=== PATIENT | male | born 1945 | race American Indian/Alaskan Native ===

== ENCOUNTER 2020-10-21 09:26 | Observation (INO) | payer MEDICARE ==
[2020-10-21] MEDS ORDERED: LACTATED RINGERS 2,000 ML IV ONE (10:09)
--- NOTE | 2020-10-21 10:10 | Emergency Department Report ---
ED General Adult HPI - General Chief complaint: GI Bleed Stated complaint: WEAKNESS/GI BLEED PUI?: No Time Seen by Provider: 10/21/20 09:45 Source: patient, EMS (Verbal report received from emergency medical services. EMS documentation not available at time of chart dictation ), RN notes reviewed Mode of arrival: Stretcher Limitations: Physical Limitation - History of Present Illness Initial comments: The patient was evaluated in the emergency department for symptoms described in the history of present illness. He/she was evaluated in the context of the global COVID-19 pandemic, which necessitated consideration that the patient might be at risk for infection with the virus that causes COVID-19. Institutional protocols and algorithms that pertain to the evaluation of patients at risk for COVID-19 are in a state of rapid change based on information released by regulatory bodies including the CDC and federal and stat e organizations. These policies and algorithms were followed during the patient's care in the emergency department. Please note that these policies, procedures and recommendations changed on a rapid basis. During the history and physical examination, I am chaperoned by experimental display builder Townsend. Patient is a 75-year-old gentleman who is not known to myself previously. He is up-to-date with COVID-19 vaccination, has a history of partial pancreatic resection, Whipple procedure, is currently on Creon, and reports he does not take any systemic anticoagulation. He is not quite sure why he had his Whipple procedure. His medical care is typically at [facility]. He requested to go to [facility] with EMS, but because he was hypotensive and tachycardic in the field, he was diverted to this emergency room. The patient presents to the ER today with a complaint of painless lower GI bleed. He states that 4 to 5 days ago, he had an episode of dark/bright red blood per rectum x1. This has since resolved. Over the past 4 days, he has not defecated otherwise. However, this morning, he began to have dark red blood per rectum. He denies headache, new neck pain, chest pain, abdominal pain, shortness of breath. He feels dizzy and lightheaded. He denies abdominal pain. He denies fevers and chills. He feels nauseous. He denies urinary symptoms. He denies focal extremity weakness and numbness. He denies Covid symptomatology. He is amenable to packed red blood cell transfusion if necessary. He specifically denies consumption of aspirin, Plavix, Coumadin, and novel anticoagulant agents. -: Gradual, days(s) Consistency: intermittent Improves with: none Worsens with: none - Related Data Allergies Allergy/AdvReac Type Severity Reaction Status Date / Time No Known Allergies Allergy Unverified 10/21/20 10:12 ED Review of Systems ROS: Stated complaint: WEAKNESS/GI BLEED Other details as noted in HPI Constitutional: malaise, weakness Eyes: denies: eye discharge ENT: denies: epistaxis Respiratory: denies: cough Cardiovascular: syncope (Near syncope). denies: chest pain Gastrointestinal: nausea, vomiting, hematochezia. denies: abdominal pain, hematemesis, melena Neurological: weakness ED Physical Exam - General Limitations: Physical Limitation General appearance: alert, in no apparent distress - Head Head exam: Present: atraumatic, normocephalic - Eye Eye exam: Present: normal appearance, EOMI. Absent: nystagmus - ENT ENT exam: Present: normal exam, normal orophraynx, mucous membranes moist, normal external ear exam - Neck Neck exam: Present: normal inspection, full ROM. Absent: tenderness, meningismus - Respiratory Respiratory exam: Present: normal lung sounds bilaterally. Absent: respiratory distress, wheezes, rales, rhonchi, stridor, decreased breath sounds - Cardiovascular Cardiovascular Exam: Present: normal rhythm, tachycardia, normal heart sounds. Absent: bradycardia, irregular rhythm, systolic murmur, diastolic murmur, rubs, gallop - GI/Abdominal GI/Abdominal exam: Present: soft, other (Evidence of Whipple procedure noted. Scaphoid abdomen noted.). Absent: distended, guarding, rebound, rigid, pulsatile mass - Rectal Rectal exam: Present: normal inspection, normal rectal tone, heme (+) stool, bloody stool - Extremities Exam Extremities exam: Present: normal inspection, full ROM, other (2+ pulses noted in the bilateral upper and lower extremities. There is no palpable cord. negative Homans sign. Muscular compartments are soft. The pelvis is stable.). Absent: pedal edema, calf tenderness - Back Exam Back exam: Present: normal inspection. Absent: tenderness, CVA tenderness (R), CVA tenderness (L), paraspinal tenderness, vertebral tenderness - Neurological Exam Neurological exam: Present: alert, oriented X3, other (No facial droop. Tongue midline. Extraocular movements intact bilaterally. Facial sensation intact to light touch in V1, V2, V3 distribution bilaterally. 5 and a 5 strength in 4 extremities. Sensation intact to light touch in 4 extremities.). Absent: motor sensory deficit - Psychiatric Psychiatric exam: Present: flat affect - Skin Skin exam: Present: warm, dry, intact, normal color. Absent: rash ED Course Vital Signs 10/21/20 10:41 Pulse Rate 113 H Respiratory 18 Rate Blood Pressure 114/65 [Right] O2 Sat by Pulse 100 Oximetry - Reevaluation(s) Reevaluation #1: 10/21/20 10:29 Differential diagnosis, including but not limited to: Lower GI bleed, angiodysplasia, diverticulosis, malignancy Assessment and plan: 75-year-old gentleman, who is awake, alert, oriented, sober with a GCS of 15, heart rate 120 to 130 bpm, blood pressure 80 to 94 mmHg systolic, with dark red blood per rectum, without physical pain. He reports having had a colonoscopy 2 years ago. He does not remember results of the colonoscopy. He is amenable to IV placement, IV fluids, diagnostic laboratory testing, and admission to the medical service for supportive care. I have discussed this plan of care with the patient, who articulated siena g. Initially reached out to GI physician on-call, Dr. Nga Rosenthal He will follow in consultation. 10/21/20 12:34 Patient was seen and examined with the aforementioned assembler dry cell and battery. He was able to look up patient's medical records at [facility], the patient has a history of alcoholism, and still consumes alcohol. He will follow in consultation. Hospital physician, Dr. James, to admit patient to the medical service. Blood pressure 110 systolic. Heart rate 105 bpm. No active vomiting. Patient does not appear to be in any acute distress. 10/21/20 12:35 Care team unable to obtain temperature orally, or from an axillary standpoint. Still has dark red blood per rectum. I suspect that this is environmental hypothermia. We will start patient on active patient warming. We will repeat oral temperature, axillary temperature, and if not able to obtain, have ordered rectal temperature. ED Medical Decision Making - Lab Data Result diagrams: 10/21/20 11:22 10/21/20 11:22 Vital Signs 10/21/20 10:41 Pulse Rate 113 H Respiratory 18 Rate Blood Pressure 114/65 [Right] O2 Sat by Pulse 100 Oximetry Lab Results 10/21/20 10/21/20 10/21/20 Range/Units 09:47 11:22 11:22 WBC 9.5 (4.5-11.0) K/mm3 RBC 3.28 L (3.65-5.03) M/mm3 Hgb 10.5 L (11.8-15.2) gm/dl Hct 32.0 L (35.5-45.6) % MCV 98 H (84-94) fl MCH 32 (28-32) pg MCHC 33 (32-34) % RDW 17.8 H (13.2-15.2) % Plt Count 331 (140-440) K/mm3 Lymph % (Auto) 15.4 (13.4-35.0) % [place] % (Auto) 5.7 (0.0-7.3) % Eos % (Auto) 0.5 (0.0-4.3) % Baso % (Auto) 0.4 (0.0-1.8) % Lymph # (Auto) 1.5 (1.2-5.4) K/mm3 [place] # (Auto) 0.5 (0.0-0.8) K/mm3 Eos # (Auto) 0.0 (0.0-0.4) K/mm3 Baso # (Auto) 0.0 (0.0-0.1) K/mm3 Seg Neutrophils % 78.0 H (40.0-70.0) % Seg Neutrophils # 7.4 (1.8-7.7) K/mm3 PT 13.5 (12.2-14.9) Sec. INR 0.98 (0.87-1.13) APTT 26.4 (24.2-36.6) Sec. Sodium (137-145) mmol/L Potassium (3.6-5.0) mmol/L Chloride (98-107) mmol/L Carbon Dioxide (22-30) mmol/L Anion Gap mmol/L BUN (9-20) mg/dL Creatinine (0.8-1.3) mg/dL Estimated GFR ml/min BUN/Creatinine Ratio % Glucose (75-100) mg/dL POC Glucose 110 H (70-105) mg/dL Calcium (8.4-10.2) mg/dL Magnesium (1.7-2.3) mg/dL Total Bilirubin (0.1-1.2) mg/dL AST (5-40) units/L ALT (7-56) units/L Alkaline Phosphatase (35-129) units/L Total Protein (6.3-8.2) g/dL Albumin (3.9-5) g/dL Albumin/Globulin Ratio % 10/21/20 Range/Units 11:22 WBC (4.5-11.0) K/mm3 RBC (3.65-5.03) M/mm3 Hgb (11.8-15.2) gm/dl Hct (35.5-45.6) % MCV (84-94) fl MCH (28-32) pg MCHC (32-34) % RDW (13.2-15.2) % Plt Count (140-440) K/mm3 Lymph % (Auto) (13.4-35.0) % [place] % (Auto) (0.0-7.3) % Eos % (Auto) (0.0-4.3) % Baso % (Auto) (0.0-1.8) % Lymph # (Auto) (1.2-5.4) K/mm3 [place] # (Auto) (0.0-0.8) K/mm3 Eos # (Auto) (0.0-0.4) K/mm3 Baso # (Auto) (0.0-0.1) K/mm3 Seg Neutrophils % (40.0-70.0) % Seg Neutrophils # (1.8-7.7) K/mm3 PT (12.2-14.9) Sec. INR (0.87-1.13) APTT (24.2-36.6) Sec. Sodium 142 (137-145) mmol/L Potassium 5.4 H (3.6-5.0) mmol/L Chloride 109.4 H (98-107) mmol/L Carbon Dioxide 21 L (22-30) mmol/L Anion Gap 17 mmol/L BUN 24 H (9-20) mg/dL Creatinine 0.9 (0.8-1.3) mg/dL Estimated GFR > 60 ml/min BUN/Creatinine Ratio 27 % Glucose 115 H (75-100) mg/dL POC Glucose (70-105) mg/dL Calcium 8.7 (8.4-10.2) mg/dL Magnesium 1.70 (1.7-2.3) mg/dL Total Bilirubin 0.40 (0.1-1.2) mg/dL AST 30 (5-40) units/L ALT 19 (7-56) units/L Alkaline Phosphatase 177 H (35-129) units/L Total Protein 6.6 (6.3-8.2) g/dL Albumin 3.1 L (3.9-5) g/dL Albumin/Globulin Ratio 0.9 % - EKG Data -: EKG Interpreted by Me EKG shows normal: sinus rhythm Rate: tachycardia - EKG Data When compared to previous EKG there are: previous EKG unavailable 10/21/20 10:30 EKG is interpreted at 10: 20 4 AM Sinus rhythm, tachycardia, rate 107 bpm. Left axis deviation. Left anterior fascicular block. Motion artifact. QTC 478 ms. Abnormal EKG. Not a STEMI. Critical care attestation.: If time is entered above; I have spent that time in minutes in the direct care of this critically ill patient, excluding procedure time. ED Disposition Clinical Impression: GI bleed, History of Whipple procedure Disposition: ADMITTED INPATIENT Is pt being admited?: Yes Does the pt Need Aspirin: No Condition: Serious Referrals: PRIMARY CARE, [Referring] - 3-5 Days Forms: Accompanied Note
[2020-10-21] MEDS ORDERED: ONDANSETRON 4 MG/2 ML INJ IV ONE (11:08)
[2020-10-21 11:48] LABS: Basophils % (Auto) 0.4 % (0.0-1.8); Eosinophils % (Auto) 0.5 % (0.0-4.3); Hemoglobin 10.5 gm/dl (11.8-15.2); Lymphocytes # (Auto) 1.5 K/mm3 (1.2-5.4); Lymphocytes % (Auto) 15.4 % (13.4-35.0); Mean Corpuscular HGB Conc 33 % (32-34); Mean Corpuscular Volume 98 fl (84-94); Monocytes # (Auto) 0.5 K/mm3 (0.0-0.8); Monocytes % (Auto) 5.7 % (0.0-7.3); Platelet Count 331 K/mm3 (140-440); Red Blood Count 3.28 M/mm3 (3.65-5.03); Red Cell Distribution Width 17.8 % (13.2-15.2)
[2020-10-21 12:07] LABS: INR 0.98 (0.87-1.13)
[2020-10-21 12:08] LABS: Partial Thromboplastin Time 26.4 Sec. (24.2-36.6)
[2020-10-21 12:16] LABS: Alanine Aminotransferase 19 units/L (7-56); Albumin 3.1 g/dL (3.9-5); BUN/Creatinine Ratio 27; Blood Urea Nitrogen 24 mg/dL (9-20); Calcium 8.7 mg/dL (8.4-10.2); Hemolysis Index 37
--- NOTE | 2020-10-21 12:52 | History and Physical Report ---
History of Present Illness Chief complaint: I have had blood when I go to the toilet History of present illness: 75 YO Male with PUD, ETOH Pancreatitis S/P Whipple Procedure who is currently vaccinated against Coronavirus presents to ED for evaluation. Patient reports "I have had blood in my stool". Patient reports that he has experienced 3 episodes of blood in his stool over the past 4 days. Patient states that the initial event was 4 days ago without any subsequent bleeding. Patient states that he awoke from sleep this morning and had 2 episodes of dark red blood per rectum. EMS was notified and upon arrival the patient was found to be in distress and subsequent transported to [facility] for further care and evaluation of the aforementioned symptoms. The patient was seen and evaluated in the emergency department. All lab and imaging studies reviewed. Patient was found to be Hemoccult positive with clinical symptoms consistent with GI bleed. Patient mated to medical floor and initiated on GI bleed protocol. GI team consulted in ED. Patient denies fever, chills, chest pain, palpitation, productive cough, skin rash, recent ill contact, or known exposure to COVID-19. Patient denies excessive NSAID use, aspirin use, or herbal supplementation. No prior admission for review. No medication listed at time of admission for reconciliation. Advanced care planning conducted in ED. Past History Past Medical History: other (See HPI) Past Surgical History: Other (Whipple procedure) Social history: single, alcohol abuse Family history: hypertension Medications and Allergies Allergies Allergy/AdvReac Type Severity Reaction Status Date / Time No Known Allergies Allergy Unverified 10/21/20 10:12 Review of Systems Constitutional: no weight loss, no fever, no chills Ears, nose, mouth and throat: no ear pain, no tinnitis, no nose pain, no nasal congestion, no nasal discharge Cardiovascular: no chest pain, no orthopnea, no palpitations, no rapid/irregular heart beat, no syncope Respiratory: no cough, no excessive sputum Gastrointestinal: BRBPR, no abdominal pain, no vomiting, no diarrhea, no change in bowel habits, no hematochezia, no early satiety, no heartburn Genitourinary Male: no hematuria, no flank pain, no discharge, no urinary frequency, no urinary hesitancy Rectal: no pain, no incontinence, no bleeding Musculoskeletal: no neck pain, no shooting arm pain, no low back pain Integumentary: no deferred, no rash, no sores, no wounds, no jaundice Neurological: no head injury, no numbness, no seizures, no syncope Psychiatric: no anxiety, no memory loss, no sleep disturbances, no insomnia, no change in appetite, no change in libido Endocrine: no cold intolerance, no polyphagia, no polydipsia, no nocturia, no flushing Hematologic/Lymphatic: no easy bruising, no easy bleeding Allergic/Immunologic: no urticaria, no wheezing Exam - Constitutional Vitals: Temp Pulse Resp BP Pulse Ox 113 H 18 114/65 100 10/21/20 10:41 10/21/20 10:41 10/21/20 10:41 10/21/20 10:41 General appearance: Present: mild distress, cachectic - EENT Eyes: Present: PERRL (Conjunctival pallor) ENT: hearing intact, clear oral mucosa - Neck Neck: Present: supple, normal ROM - Respiratory Respiratory effort: normal Respiratory: bilateral: CTA - Cardiovascular Heart Sounds: Present: S1 & S2. Absent: rub, click - Extremities Extremities: pulses symmetrical, No edema Peripheral Pulses: within normal limits - Abdominal General gastrointestinal: Present: soft, non-tender, non-distended, normal bowel sounds Male genitourinary: Present: normal - Integumentary Integumentary: Present: clear, warm, dry - Musculoskeletal Musculoskeletal: gait normal, strength equal bilaterally - Psychiatric Psychiatric: appropriate mood/affect, intact judgment & insight - Neurologic Neurologic: CNII-XII intact, moves all extremities Results - Labs CBC & Chem 7: 10/21/20 11:22 10/21/20 11:22 Labs: Abnormal lab results 10/21/20 10/21/20 10/21/20 Range/Units 09:47 11:22 11:22 RBC 3.28 L (3.65-5.03) M/mm3 Hgb 10.5 L (11.8-15.2) gm/dl Hct 32.0 L (35.5-45.6) % MCV 98 H (84-94) fl RDW 17.8 H (13.2-15.2) % Seg Neutrophils % 78.0 H (40.0-70.0) % Potassium 5.4 H (3.6-5.0) mmol/L Chloride 109.4 H (98-107) mmol/L Carbon Dioxide 21 L (22-30) mmol/L BUN 24 H (9-20) mg/dL Glucose 115 H (75-100) mg/dL POC Glucose 110 H (70-105) mg/dL Alkaline Phosphatase 177 H (35-129) units/L Albumin 3.1 L (3.9-5) g/dL Assessment and Plan - Patient Problems (1) GI bleed Current Visit: Yes Status: Acute Plan to address problem: GI bleed protocol: CBC, CMP, PPI therapy, n.p.o. after midnight, GI team consulted. Endoscopy in a.m. as per GI team. (2) Alcohol dependence Current Visit: Yes Status: Acute Plan to address problem: Thiamine, multivitamin, folic acid, banana bag, supportive care, patient denies exhibit signs or symptoms of alcohol withdrawal at this time. (3) Peptic ulcer disease Current Visit: Yes Status: Acute Plan to address problem: PPI therapy, supportive care, GI team consulted. (4) DVT prophylaxis Current Visit: Yes Status: Acute Plan to address problem: SCD to bilateral lower extremities while in bed, patient is ambulatory (5) Advance care planning Current Visit: Yes Status: Acute Plan to address problem: Disease education conducted, care plan discussed, diagnosis discussed, prognosis discussed, patient is full code. Patient knowledges understanding and agreement with care plan, +30 minutes.
[2020-10-21] MEDS ORDERED: HYDROmorphone 1 MG/1 ML INJ IV PRN (12:57)
[2020-10-21] MEDS ORDERED: oxyCODONE /ACETAMINOPHEN 5-325MG TAB PO PRN (12:57)
[2020-10-21] MEDS ORDERED: ACETAMINOPHEN 325 MG TAB PO PRN (12:57)
[2020-10-21] MEDS ORDERED: ONDANSETRON 4 MG/2 ML INJ IV PRN (12:57)
[2020-10-21] MEDS ORDERED: ALBUTEROL 2.5 MG/3 ML NEBU IH PRN (12:57)
[2020-10-21 15:52] VITALS: BP 129/78
[2020-10-21] MEDS ORDERED: PANTOPRAZOLE 80 MG in SODIUM CHLORIDE 0.9% 100 ML IV SCH (16:00)
--- NOTE | 2020-10-21 16:29 | Consultation ---
History of Present Illness - Reason for Consult Consult date: 10/21/20 GI bleed Requesting physician: JIM DRAPER - History of Present Illness Mr. Tracey is a 74 yo BM brought to ER by EMS for weakness and low BP. History obtained from pt's and from our office records. Pt states he had red blood mixed with stool 5 days ago x 1. Then, he was back to normal with greenish-brown stool occurring qod to 2-3x/d. Today, he noted red blood mixed with greenish stool. He felt weak and dizzy on standing, and his called the EMS. He normally gets his care at [place], but he was brought here due to low BP. He denies abd pain. He felt nauseous, and states he vomited today after coming to ER. Emesis was gastric contents, per pt. Of note, he states he drinks 1 pt liquor qod. He has a hx of Whipple for chronic alcoholic pancreatitis ~ 7 yrs ago, complica mark by SBO. He has apparently had marginal ulcers at anastomosis in the past. He is on Creon. Pt states he has had GI bleed, approx 1 yr ago. Meds reviewed. Past History Past Medical History: other (Jejunal/marginal ulcer - 2020, 2020 - Hepatic abscess - drained and treated with abscesses) Past Surgical History: thyroidectomy, bowel surgery (SBO - exploratory laparotomy), Other (Whipple surgery - 2012 for alcoholic pancreatitis. ) Social history: alcohol abuse (Drinking 1 pt qod) Medications and Allergies Allergies Allergy/AdvReac Type Severity Reaction Status Date / Time No Known Allergies Allergy Unverified 10/21/20 10:12 Active Meds: Active Medications Acetaminophen (Acetaminophen 325 Mg Tab) 650 mg PO Q4H PRN PRN Reason: Pain MILD(1-3)/Fever >100.5/BARROS Albuterol (Albuterol 2.5 Mg/3 Ml Nebu) 2.5 mg IH Q4HRT PRN PRN Reason: Shortness Of Breath Folic Acid (Folic Acid 1 Mg Tab) 1 mg PO QDAY LUZ MARIA Hydromorphone HCl (Hydromorphone 1 Mg/1 Ml Inj) 0.5 mg IV Q12H PRN PRN Reason: Pain , Severe (7-10) Pantoprazole Sodium 80 mg/ (Sodium Chloride) 100 mls @ 10 mls/hr IV DIRECT LUZ MARIA Thiamine HCl 100 mg/ Folic Acid 1 mg/ Multivitamins/Minerals 10 ml/ Sodium Chloride 1,011.2 mls @ 250 mls/hr IV ONCE ONE Stop: 10/21/20 20:53 Multivitamins (Multivitamins ,Therapeutic Tab) 1 each PO QDAY LUZ MARIA Ondansetron HCl (Ondansetron 4 Mg/2 Ml Inj) 4 mg IV Q8H PRN PRN Reason: Nausea And Vomiting Oxycodone/Acetaminophen (Oxycodone /Acetaminophen 5-325mg Tab) 1 tab PO Q6H PRN PRN Reason: Pain, Moderate (4-6) Sodium Chloride (Sodium Chloride 0.9% 10 Ml Flush Syringe) 10 ml IV BID LUZ MARIA Sodium Chloride (Sodium Chloride 0.9% 10 Ml Flush Syringe) 10 ml IV PRN PRN PRN Reason: LINE FLUSH Thiamine HCl (Thiamine 100 Mg Tab) 100 mg PO QDAY LUZ MARIA Review of Systems All systems: negative (as noted in HPI) Exam - Constitutional Vitals: Temp Pulse Resp BP Pulse Ox 90 20 129/78 99 10/21/20 15:46 10/21/20 15:46 10/21/20 15:46 10/21/20 15:46 General appearance: Present: no acute distress, other (anxious) - EENT Eyes: Present: PERRL, EOM intact ENT: hearing intact - Respiratory Respiratory effort: normal Respiratory: bilateral: CTA (anterior) - Cardiovascular Rhythm: regular Heart Sounds: Present: S1 & S2 - Extremities Extremities: No edema - Abdominal General gastrointestinal: Present: soft, non-tender, other (Well-healed vertical midline incision) - Rectal Rectal Exam: other (per ER MD, red liquid blood streaking glove) Results - Labs CBC & Chem 7: 10/21/20 11:22 10/21/20 11:22 Labs: Abnormal lab results 10/21/20 10/21/20 10/21/20 Range/Units 09:47 11:22 11:22 RBC 3.28 L (3.65-5.03) M/mm3 Hgb 10.5 L (11.8-15.2) gm/dl Hct 32.0 L (35.5-45.6) % MCV 98 H (84-94) fl RDW 17.8 H (13.2-15.2) % Seg Neutrophils % 78.0 H (40.0-70.0) % Potassium 5.4 H (3.6-5.0) mmol/L Chloride 109.4 H (98-107) mmol/L Carbon Dioxide 21 L (22-30) mmol/L BUN 24 H (9-20) mg/dL Glucose 115 H (75-100) mg/dL POC Glucose 110 H (70-105) mg/dL Alkaline Phosphatase 177 H (35-129) units/L Albumin 3.1 L (3.9-5) g/dL Assessment and Plan 1. GI bleed - by history, from patient and his , there was red blood mixed with brown stool in bowl this AM. Pt has hx of GI bleed, and has had multiple EGD and colonoscopies in the past, though details not available at present. No evidence of severe, active GI bleed. - initiate PPI - monitor H/H and transfuse as needed - will do EGD, given hx of elevated BUN/Cr ratio, in AM, and if negative, consider colonoscopy. 2. Hx alcoholic pancreatitis - s/p Whipple, and has pancreatic insufficiency. - on Creon 3. Hx of liver abscess in recent past - if needed, repeat CT. 4. EtOH abuse - active. - discussed abstinence. Pt was seen in AM. RN reported later in afternoon that pt had 2 mel[address] with [address] James and advised PPI drip and monitor H/H and will do EGD in AM. Then, spoke with , and she stated pt was going to sign out AMA, and she was on her way to possibly pick him up.
[2020-10-21] MEDS ORDERED: THIAMINE 100 MG, FOLIC ACID 1 MG, MULTIPLE VITAMIN INJ, ADULT 10 ML in SODIUM CHLORIDE ... IV ONE (16:51)
--- NOTE | 2020-10-21 17:47 | Event Note ---
Date: 10/21/20 Patient left AMA prior to completion of work-up. Patient informed of increased risk of worsening symptoms and even . Patient acknowledges understanding instructions.
[2020-10-22] MEDS ORDERED: THIAMINE 100 MG TAB PO SCH (10:00)
[2020-10-22] MEDS ORDERED: MULTIVITAMINS ,THERAPEUTIC TAB PO SCH (10:00)
[2020-10-22] MEDS ORDERED: FOLIC ACID 1 MG TAB PO SCH (10:00)
--- NOTE | 2020-10-25 13:57 | Electrocardiograph Report ---
[facility] Test Date: 2020-10-21 Test Time: 10:24:31 Pat Name: PETER MAHMOOD Department: Room: [facility] Gender: M Director Of Primary: MARCIO : 1945 Requested By: JIM DRAPER Order Number: [id number] Reading MD: Andrew Schofield Measurements Intervals [place] Rate: 107 P: 75 OK: 166 QRS: -40 QRSD: 82 T: QT: 358 QTc: 478 Interpretive Statements Sinus tachycardia Left axis deviation Abnrm R prog, consider ASMI or lead placement No previous ECG available for comparison Electronically Signed On 10-25-2020 13:57:22 EDT by Andrew Schofield
== END 2020-10-21 16:10 | disposition left against medical advice (07) ==
LOC: EDBD → ED 09:26 → 3A 12:57
PROVIDERS: ADMIT Internal Medicine; ATTEND Internal Medicine
DX: K92.2 Gastrointestinal hemorrhage, unspecified (principal); F10.129 Alcohol abuse with intoxication, unspecified; K86.0 Alcohol-induced chronic pancreatitis; Z79.899 Other long term (current) drug therapy; Z98.890 Other specified postprocedural states
CPT/HCPCS: 36415; 80053; 82962; 83735; 85025; 85610; 85730; 86850; 86900; 86901; 93005; 99284; G0378; J2405; J7120